=== PATIENT | male | born 1970 | race Caucasian/White ===

== ENCOUNTER 2016-05-10 18:07 | Emergency (ER) | payer OTHER ==
[~2016-05-10] VITALS: Ht 193 cm; Wt 108.9 kg
[~2016-05-10 18:07] MED LIST: HYDR-965 PO
[2016-05-10 18:46] VITALS: BP 141/81
[2016-05-10] MEDS ORDERED: XANAX (18:56)
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
== END 2016-05-10 19:28 | disposition home or self-care (01) ==
LOC: ER 18:07
DX: S62.002A Unspecified fracture of navicular [scaphoid] bone of left wrist, initial encounter for closed fracture (principal); S40.012A Contusion of left shoulder, initial encounter; Z76.0 Encounter for issue of repeat prescription; V89.2XXA Person injured in unspecified motor-vehicle accident, traffic, initial encounter; Y93.89 Activity, other specified; Y99.8 Other external cause status; Y92.89 Other specified places as the place of occurrence of the external cause
CPT/HCPCS: 29125; 73030; 73200; 99284-25